=== PATIENT | female | born 1975 | race Caucasian/White ===

== ENCOUNTER 2016-10-21 07:51 | Emergency (ER) | payer BC ==
[~2016-10-21] VITALS: Ht 167.6 cm; Wt 108.9 kg
[2016-10-21 09:48] VITALS: BP 131/94
== END 2016-10-21 09:48 | disposition home or self-care (01) ==
LOC: ED 07:51
DX: S39.012A Strain of muscle, fascia and tendon of lower back, initial encounter (principal); K21.9 Gastro-esophageal reflux disease without esophagitis; Z88.1 Allergy status to other antibiotic agents; X58.XXXA Exposure to other specified factors, initial encounter; Y93.89 Activity, other specified; Y99.8 Other external cause status; Y92.89 Other specified places as the place of occurrence of the external cause
CPT/HCPCS: J1885

== ENCOUNTER 2016-12-02 05:41 | Emergency (ER) | payer BC ==
[2016-12-02 07:30] LABS: CALCIUM 8.7 mg/dL (8.5-10.1); CARBON DIOXIDE 26.4 mmol/L (21-32); CHLORIDE SERUM 103 mmol/L (98-107); CREATININE SERUM 0.8 mg/dL (0.6-1.0); GFR1 > 60 mL/min; GLUCOSE SERUM 104 mg/dL (74-106); POTASSIUM SERUM 3.8 mmol/L (3.5-5.1); SODIUM SERUM 138 mmol/L (136-145)
[2016-12-02 07:37] LABS: BASOPHIL % 0.3 % (0-2); PLATELET COUNT 227 x10^3mcL (130-400)
[2016-12-02 07:39] LABS: RED CELL DISTRIBUTION WIDTH 14.6 % (11.5-14.5)
[2016-12-02 09:49] VITALS: BP 137/73
== END 2016-12-02 09:49 | disposition home or self-care (01) ==
LOC: ED 05:41
PROVIDERS: Emergency Medicine
DX: M54.2 Cervicalgia (principal); G47.30 Sleep apnea, unspecified; K21.9 Gastro-esophageal reflux disease without esophagitis; K58.9 Irritable bowel syndrome, unspecified; Z79.1 Long term (current) use of non-steroidal anti-inflammatories (NSAID); Z88.1 Allergy status to other antibiotic agents
CPT/HCPCS: 86308; J1100; J1885; J7030; Q9967

== ENCOUNTER 2018-04-06 20:54 | Emergency (ER) | payer BC ==
[2018-04-06 20:59] VITALS: Ht 167.6 cm
[2018-04-06 21:40] VITALS: BP 147/99
== END 2018-04-06 21:40 | disposition home or self-care (01) ==
LOC: ED 20:54
DX: J02.9 Acute pharyngitis, unspecified (principal); R51 Headache; Z88.1 Allergy status to other antibiotic agents; K21.9 Gastro-esophageal reflux disease without esophagitis; K58.9 Irritable bowel syndrome, unspecified

== ENCOUNTER 2018-06-29 14:26 | Emergency (ER) | payer BC ==
[~2018-06-29] VITALS: Ht 167.6 cm; Wt 118.8 kg
[2018-06-29 14:36] VITALS: Ht 167.6 cm; Wt 118.8 kg
[2018-06-29 15:23] LABS: BASOPHIL % 1.4 % (0-2); PLATELET COUNT 243 x10^3mcL (130-400); RED CELL DISTRIBUTION WIDTH 14.3 % (11.5-14.5)
[2018-06-29 15:33] LABS: CALCIUM 8.8 mg/dL (8.5-10.1); CARBON DIOXIDE 25.8 mmol/L (21-32); CHLORIDE SERUM 103 mmol/L (98-107); CREATININE SERUM 0.9 mg/dL (0.6-1.0); GFR1 > 60 mL/min; GLUCOSE SERUM 95 mg/dL (74-106); POTASSIUM SERUM 4.4 mmol/L (3.5-5.1); SODIUM SERUM 138 mmol/L (136-145)
[2018-06-29 15:45] LABS: ALBUMIN 3.6 g/dL (3.4-5.0); ALKALINE PHOSPHATASE 76 U/L (46-116); ALT/SGPT 25 U/L (14-59); AST/SGOT 17 U/L (15-37); BILIRUBIN TOTAL 0.7 mg/dL (0.20-1.00); LIPASE 135 IU/L (73-393); T4(THYROXINE) 9.2 ug/dL (4.7-13.3); TOTAL PROTEIN, SERUM 7.9 g/dL (6.4-8.2)
[2018-06-29 17:04] VITALS: BP 126/75
== END 2018-06-29 17:04 | disposition home or self-care (01) ==
LOC: ED 14:26
PROVIDERS: Emergency Medicine
DX: K21.9 Gastro-esophageal reflux disease without esophagitis (principal); R07.89 Other chest pain; K58.9 Irritable bowel syndrome, unspecified; Z88.1 Allergy status to other antibiotic agents
CPT/HCPCS: 36415; Q0092

== ENCOUNTER 2018-10-19 11:31 | Emergency (ER) | payer BC ==
[~2018-10-19] VITALS: Ht 167.6 cm; Wt 120.4 kg
[2018-10-19 11:38] VITALS: Ht 167.6 cm; Wt 120.4 kg
[2018-10-19 13:52] LABS: BASOPHIL % 0.3 % (0-2); PLATELET COUNT 270 x10^3mcL (130-400); RED CELL DISTRIBUTION WIDTH 14.2 % (11.5-14.5)
[2018-10-19 13:54] LABS: AMPHETAMINE QUAL UR NONE DETECTED (See below)
[2018-10-19 14:12] LABS: CALCIUM 8.9 mg/dL (8.5-10.1); CARBON DIOXIDE 26.7 mmol/L (21-32); CHLORIDE SERUM 102 mmol/L (98-107); CREATININE SERUM 0.8 mg/dL (0.6-1.0); GFR1 > 60 mL/min; GLUCOSE SERUM 95 mg/dL (74-106); POTASSIUM SERUM 4.1 mmol/L (3.5-5.1); SODIUM SERUM 137 mmol/L (136-145)
[2018-10-19 14:16] LABS: ALBUMIN 3.6 g/dL (3.4-5.0); ALKALINE PHOSPHATASE 73 U/L (46-116); ALT/SGPT 20 U/L (14-59); AST/SGOT 13 U/L (15-37); BILIRUBIN TOTAL 0.6 mg/dL (0.20-1.00); MAGNESIUM 1.9 mg/dL (1.8-2.4)
[2018-10-19 14:37] LABS: FREE T4 1.22 ng/dL (0.76-1.46); FREE THYROXINE INDEX 3.5 ug/dL (1.4-4.5); T4(THYROXINE) 10.4 ug/dL (4.7-13.3)
[2018-10-19 14:38] LABS: T3 TOTAL 1.35 ng/mL
[2018-10-19 18:14] VITALS: BP 130/80
== END 2018-10-19 18:15 | disposition home or self-care (01) ==
LOC: ED 11:31
PROVIDERS: Emergency Medicine
DX: J01.90 Acute sinusitis, unspecified (principal); R00.2 Palpitations; R42 Dizziness and giddiness; R44.2 Other hallucinations; K21.9 Gastro-esophageal reflux disease without esophagitis; K58.9 Irritable bowel syndrome, unspecified; Z88.1 Allergy status to other antibiotic agents
CPT/HCPCS: 84439; J7030; Q0092

== ENCOUNTER 2018-12-18 23:27 | Emergency (ER) | payer BC ==
[~2018-12-18] VITALS: Ht 167.6 cm; Wt 118.8 kg
[2018-12-18 23:35] VITALS: BP 141/107; Ht 167.6 cm; Wt 118.8 kg
== END 2018-12-19 02:10 | disposition home or self-care (01) ==
LOC: ED 23:27
DX: R05 Cough (principal); N76.0 Acute vaginitis; K21.9 Gastro-esophageal reflux disease without esophagitis; Z88.1 Allergy status to other antibiotic agents
CPT/HCPCS: 82962; Q0092

== ENCOUNTER 2019-01-22 13:36 | Emergency (ER) | payer BC ==
[~2019-01-22] VITALS: Ht 167.6 cm; Wt 117.5 kg
[2019-01-22 13:41] VITALS: Ht 167.6 cm; Wt 117.5 kg
[2019-01-22 16:48] LABS: BASOPHIL % 0.3 % (0-2); PLATELET COUNT 269 x10^3mcL (130-400); RED CELL DISTRIBUTION WIDTH 13.9 % (11.5-14.5)
[2019-01-22 16:51] LABS: CALCIUM 9.1 mg/dL (8.5-10.1); CARBON DIOXIDE 27.6 mmol/L (21-32); CHLORIDE SERUM 105 mmol/L (98-107); CREATININE SERUM 0.9 mg/dL (0.6-1.0); GFR1 > 60 mL/min; GLUCOSE SERUM 88 mg/dL (74-106); POTASSIUM SERUM 3.9 mmol/L (3.5-5.1); SODIUM SERUM 141 mmol/L (136-145)
[2019-01-22 16:56] LABS: ALBUMIN 3.5 g/dL (3.4-5.0); ALKALINE PHOSPHATASE 60 U/L (46-116); ALT/SGPT 22 U/L (14-59); AST/SGOT 10 U/L (15-37); BILIRUBIN TOTAL 0.6 mg/dL (0.20-1.00); LIPASE 149 IU/L (73-393); TOTAL PROTEIN, SERUM 7.6 g/dL (6.4-8.2)
[2019-01-22 17:21] LABS: microscopic required? NO
[2019-01-22 18:04] LABS: UA SPECIFIC GRAVITY 1.025 (1.005-1.035); urine erythrocyte NEGATIVE (NEGATIVE)
[2019-01-22 18:32] VITALS: BP 127/85
== END 2019-01-22 18:32 | disposition home or self-care (01) ==
LOC: ED 13:36
PROVIDERS: Emergency Medicine
DX: S06.0X9A Concussion with loss of consciousness of unspecified duration, initial encounter (principal); M54.9 Dorsalgia, unspecified; R42 Dizziness and giddiness; K21.9 Gastro-esophageal reflux disease without esophagitis; K58.9 Irritable bowel syndrome, unspecified; Z88.1 Allergy status to other antibiotic agents; W18.30XA Fall on same level, unspecified, initial encounter; Y93.89 Activity, other specified; Y92.89 Other specified places as the place of occurrence of the external cause; Y99.8 Other external cause status
CPT/HCPCS: 85378; J7030; J7040

== ENCOUNTER 2019-06-21 05:15 | Emergency (ER) | payer BC ==
[~2019-06-21] VITALS: Ht 167.6 cm; Wt 121.6 kg
[2019-06-21 05:21] VITALS: Ht 167.6 cm; Wt 121.6 kg
[2019-06-21 07:20] VITALS: BP 141/99
== END 2019-06-21 07:20 | disposition home or self-care (01) ==
LOC: ED 05:15
DX: L03.211 Cellulitis of face (principal); K21.9 Gastro-esophageal reflux disease without esophagitis; Z88.1 Allergy status to other antibiotic agents
CPT/HCPCS: J1885